=== PATIENT | female | born 1950 | race Caucasian/White ===

== ENCOUNTER → 2023-07-29 09:22 | Outpatient (REF) | payer MEDICARE, SELFPAY | LOC: RAD 09:22 | PROVIDERS: ATTENDING PHYSICIAN Internal Medicine Rheumatology; FAMILY PHYSICIAN Family Medicine | DX: M81.0 Age-related osteoporosis without current pathological fracture (principal) | CPT/HCPCS: 77080 ==

== ENCOUNTER → 2023-10-03 12:39 | Outpatient (REF) | payer MEDICARE, SELFPAY | LOC: RCS 12:39 | PROVIDERS: ATTENDING PHYSICIAN Physician Assistant; FAMILY PHYSICIAN Family Medicine | DX: I10 Essential (primary) hypertension (principal); R06.09 Other forms of dyspnea; I34.0 Nonrheumatic mitral (valve) insufficiency | CPT/HCPCS: 93306 ==

== ENCOUNTER → 2023-12-09 12:17 | Outpatient (REF) | payer MEDICARE, SELFPAY | LOC: UCDH 12:17 | PROVIDERS: ATTENDING PHYSICIAN Physician Assistant Medical; FAMILY PHYSICIAN Family Medicine | DX: R07.81 Pleurodynia (principal) | CPT/HCPCS: 71101 ==

== ENCOUNTER 2024-03-18 17:13 | Emergency (ER) | payer MEDICARE, SELFPAY ==
[2024-03-18 17:15] VITALS: BP 170/72
[2024-03-18 17:32] LABS: % Basophils 0.2 % (0-2); % Immature Granulocytes 0.1 % (0-0.5); % Lymphocytes 10.5 % (20.5-51.1); % Monocytes 3.9 % (1.7-9.3); % Neutrophils 85.3 % (42.2-75.2); Absolute Monocytes 0.4 10^3/uL (0.1-0.6); Absolute Neutrophils 7.9 10^3/uL (1.4-6.5); Hematocrit 36.9 % (37.0-47.0); Hemoglobin 12.8 g/dL (12.0-16.0); Mean Corp Hgb Conc. 34.7 g/dL (33.0-37.0); Mean Corpuscular Hgb 29.2 pg (27.0-31.0); Mean Corpuscular Volume 84.2 fL (81.0-99.0); Mean Platelet Volume 8.6 fL (7.4-10.4); Nucleated Red Blood Cells % 0 %; Platelet Count 256 10^3/uL (130-400); Red Blood Cell Count 4.38 10^6/uL (4.20-5.40); Red Cell Dist. Width 12.4 % (11.5-14.5); White Blood Cell Count 9.3 10^3/uL (4.8-10.8)
[2024-03-18 17:43] LABS: ALT (SGPT) 25 U/L (0-35); AST (SGOT) 32 U/L (14-36); Albumin 4.9 g/dl (3.5-5.0); Alkaline Phosphatase 70 U/L (38-126); Blood Urea Nitrogen 14 mg/dl (7-17); Calcium 10.1 mg/dl (8.4-10.2); Carbon Dioxide 24 mmol/L (22-30); Chloride 104 mmol/L (98-107); Glucose 123 mg/dl (70-99); Lipase 72 U/L (23-300); Potassium 4.9 mmol/L (3.5-5.1); Sodium 140 mmol/L (135-145); Total Bilirubin 0.6 mg/dl (0.2-1.3); Total Protein 7.3 g/dl (6.3-8.2); eGFR > 60.00
--- NOTE | 2024-03-18 19:25 | ED.GENMED ---
History of Present Illness
General
Chief Complaint: Abdominal Pain
Source: patient
Exam Limitations: none
Time Seen by Provider: 03/18/24 19:01
History of Present Illness
History of Present Illness:
This is a 73 year old female that comes in with c/o right sided abd pain. State that for the past 2 days she had some right sided back discomfort and know it is more on the right abd. States that the back pain did go away, but her abd pain is not
going away. States that she is nauseated and normally she has issues with constipation but today she has gone 5 times. States that she has not eaten and she has a headache. Denies any fever, chills, chest pain, SOB, vomiting, diarrhea, dizziness,
urinary burrning.
Past History
Past History
ED Past Medical History: HTN, Hypercholesterolemia and Other (TMJ syndrome, back pain)
ED Past Surgical History: Other (TMJ surgery, abd mass surgery)
Social History
Tobacco: Non-smoker
Alcohol: None
Personal:
Living: with family
Employment: Employed
Review of Systems
Review of Systems
All Other Systems: ROS reviewed and negative except as documented in HPI and ROS
Constitutional: Reports no symptoms; Denies fever or chills
EENT: Reports no symptoms
Respiratory: Reports no symptoms; Denies cough or trouble breathing
Cardiac: Reports no symptoms; Denies chest pain
ABD/GI: Reports abdominal pain and nausea; Denies vomiting or diarrhea
: Reports no symptoms; Denies dysuria, frequency or urgency
Musculoskeletal: Reports no symptoms
Skin: Reports no symptoms
Neurological: Reports headache; Denies dizzy
Psychiatric: Reports no symptoms
Phy Exam
General Physical Exam
General Presentation: well appearing and no apparent distress
General age: appears stated age
General Skin: warm and dry
General Habitus: elderly
General Mental: alert
General Hydration: appears well hydrated
ENT Exam
ENT Exam: TM's normal, pharynx normal and neck supple
Eye Exam
Eye Exam: EOMI
Cardiovascular Exam
Cardiovascular Exam: regular rate/rhythm, no edema, no murmur and normal peripheral pulses
Pulmonary Exam
Pulmonary Exam: lungs clear, no respiratory distress, no rales, chest non tender, no crackles, no rhonchi, no wheezing and no cough
Gastrointestinal Exam
Gastrointestinal Exam: normal bowel sounds, soft, no organomegaly, no pulsatile mass, non distended and tender (Right sided abd tenderness with palpation)
Musculoskeletal Exam
Musculoskeletal Exam: full ROM and no edema
Skin Exam
Skin Exam: normal color, warm/dry, no rash and no petechia
Psychiatric Exam
Psychiatric Exam: normal mood/affect
Course
Orders/Labs/Results
Orders:
Orders
03/18/24 17:23
Complete Blood Count/With Diff Urgent
Comprehensive Metabolic Panel Urgent
Lipase Urgent
03/18/24 19:30
Urine Culture Reflexed from UA [Urinalysis Reflex To Culture] Urgent
Date Specimen was Collected: 03/18/24
Time Specimen was Collected: 17:[address] Non Medication Order As Directed
Physician Order: Please put patient height to get BMI
Above order entered?: Yes
03/18/24 19:31
0.9% Sodium Chloride 1000 ml [Nss] 1,000 ml IV BOLUS
03/18/24 19:34
Ketorolac [Toradol] 15 mg IV NOW STA
03/18/24 19:58
Iohexol [Omnipaque] See Protocol PO NOW STA
03/18/24 19:59
CT Abd/pel W Iv And Oral Contr Urgent
Comment:
Reason For Exam: Right sided abd pain
Abnormal Lab Results
03/18/24 03/18/24
17:23 19:30
Hct 36.9 L %
(37.0-47.0)
Absolute Neuts (auto) 7.9 H 10^3/uL
(1.4-6.5)
Absolute Lymphs (auto) 1.0 L 10^3/uL
(1.2-3.4)
Neutrophils % 85.3 H %
(42.2-75.2)
Lymphocytes % 10.5 L %
(20.5-51.1)
Glucose 123 H mg/dl
(70-99)
Urine Ketones 3+ A
(Negative)
03/18/24 17:23
03/18/24 17:23
Hyperglycemia.
Vital Signs
Initial and Last Documented VS:
Initial Vital Signs
Temp Pulse Resp BP Pulse Ox
98.3 F 75 20 170/72 99
03/18/24 17:15 03/18/24 17:15 03/18/24 17:15 03/18/24 17:15 03/18/24 17:15
Last Documented Vital Signs
Temp Pulse Resp BP Pulse Ox
98.3 F 75 20 147/56 99
03/18/24 17:15 03/18/24 17:15 03/18/24 17:15 03/18/24 21:53 03/18/24 17:15
MDM/Problems Addressed
Differential Diagnosis Includes:
appendicitis, renal calculus,
MDM/Problems Addressed:
this is a 73 year old female that comes in with c/o right sided abd pain. States that for 2 days she had some back discomfort but this went away. Then today she has this right sided abd pain. states that she has moved her bowels 5 times today.
will check labs Urine and get CT. will also give IV fluids.
Back into see patient. Explained that her blood work was normal. CT scan shows degenerative changes at L5/S1. Explained that the nerves wrap around to the abd and can cause abd discomfort. Patient to follow up with the family doctor and may need to
see an central melt specialist. Patient to use Tylenol or Ibuprofen for pain. Patient c/o a little fluttering feeling on the left under her breast. Monitor shows NSR with occasional PAC's. Patient states that this fluttering feeling was just second
and it seems to have stopped at this time. Return with any concerns.
Chronic conditions affecting care:
NA
Acute Exacerbation and/or Progression of Chronic Illness:
NA
*Radiology
Radiology exam reviewed: radiology read reviewed (CT-Moderate diffuse hepatic steatosis. Mild chronic bilateral renal disease. Mild diverticulosis in the sigmoid colon. Severe discogenic degenerative disease at L5/S1)
*Pulse Oximetry
Patient hypoxic: no
*EKG
Interpreted by ED Provider?: NA
Rate: EKG- N/A
*Esthetician Interpretation
Rate: Esthetician- N/A
*Critical Care Note
Total Time (30-74mins, 75-104mins- exclusive of procedures): Not Applicable
ED Attending Note
-
Portions of this chart may have been created with voice recognition software.� Occasional wrong word or��sound alike� substitutions may have occurred due to the inherent limitations of voice recognition software.
Discharge Plan
Departure
Patient Disposition: Home (Routine Discharge)
Date of Disposition: 03/18/24
Time of Disposition: 23:56
Patient with high blood pressure during this ER visit?: Yes
Condition: Good
Covid-19: Not Applicable
Discharge Problem:
Right sided abdominal pain, Degenerative disc disease at L5-S1 level
Instructions: Degenerative Disc Disease ED, Abdominal Pain, BLOOD PRESSURE
Prescriptions:
No Action
diazepam 2 MG tablet
1 - 2 mg PRN (Reason: ANXIETY)
diazepam 2 MG tablet
1 - 2 mg HS
gabapentin 100 MG capsule
100 mg HS
Patient Comments:
STOPPED WED. STOMACH PAINS , DIARRHEA
metoprolol tartrate 25 MG tablet
25 mg PO DAILY
diphenhydramine HCl [Benadryl Allergy Quick Dissolv] 25 MG strip
12.5 - 25 mg PRN (Reason: SLEEP)
ezetimibe-simvastatin [Vytorin 10-20] 1 EACH tablet
1 ea PO DAILY
Compounded Transdermal Gel
QID PRN (Reason: JAW PAIN)
Patient Comments:
40 GM.WITH 5 % LIDOCAINE,10 % KETOPRAFEN,5% BACLOFEN, 5% GABAPENTIN, 2% KETAMINE
hydrocodone-acetaminophen 1 TABLET tablet
1 tab PO Q4HPRN PRN (Reason: pain) Qty: 12 0RF
Referrals:
Keon Spangler DO [Family Provider] - Follow up in 2-3 days
Activity Restrictions/Additional Instructions:
As discussed, your blood work is normal and your urine is negative for infection. Your CT is negative for any acute disease but shows that you have degenerative changes in the L5/S1. The nerves from the back wrap around to the abdomen and can cause
abdomen pain. Please follow up with the family doctor and possibly an central melt specialist for further evaluation. You may use Tylenol 1000mg every 6 hours and Ibuprofen 600mg every 6 hours with food for pain. IF YOU HAVE ANY OTHER CONCERNS PLEASE
RETURN TO THE EMERGENCY ROOM.
Interventions
Interventions:
*Risk Screen - Suicide Last Done: 03/18/24 19:23
*General Assessment Last Done: 03/18/24 17:15
*Neglect/Abuse Screening Last Done: 03/18/24 19:23
*ED COVID-19 Vaccine History Last Done: 03/18/24 19:23
BU-Aachcd-Snjrqmlssy Assessment Last Done: 03/18/24 19:47
Discharge Date and Time
Print Language: [place]
[2024-03-18 19:31] VITALS: BP 164/70
[2024-03-18 19:41] LABS: Urine Albumin Trace (Neg - Trace); Urine Bilirubin Negative (Negative); Urine Character Clear (Clear); Urine Color Yellow; Urine Glucose Negative (Negative); Urine Ketone 3+ (Negative); Urine Leukocyte Negative (Negative); Urine Nitrite Negative (Negative); Urine Occult Blood Negative (Negative); Urine Specific Gravity 1.025 (<1.030); Urine Urobilinogen Negative (Neg - 1+)
[2024-03-18] MEDS: TORADOL 15 MG IV (19:42)
[2024-03-18] MEDS: NSS 1000 IV (19:42)
[2024-03-18 20:00] VITALS: BP 150/66
[2024-03-18] MEDS: OMNIPAQUE 50 ML PO (20:11)
[2024-03-18 21:00] VITALS: BP 143/72
[2024-03-18 21:53] VITALS: BP 147/56
== END 2024-03-19 00:40 | disposition home or self-care (01) ==
LOC: EMR 17:13
PROVIDERS: Emergency Medicine; Student in an Organized Health Care Education/Training Program; EMERGENCY PHYSICIAN Emergency Medicine; FAMILY PHYSICIAN Family Medicine
DX: R10.31 Right lower quadrant pain (principal); R11.0 Nausea; R51.9 Headache, unspecified; M51.37 Other intervertebral disc degeneration, lumbosacral region; K76.0 Fatty (change of) liver, not elsewhere classified; K57.30 Diverticulosis of large intestine without perforation or abscess without bleeding; I10 Essential (primary) hypertension; E78.00 Pure hypercholesterolemia, unspecified
CPT/HCPCS: 99285; 96361; 96374; 74177; 80053; 81003; 83690; 85025; Q9967

== ENCOUNTER → 2024-05-12 15:00 | Outpatient (REF) | payer MEDICARE, SELFPAY | LOC: WDC 15:00 | PROVIDERS: ATTENDING PHYSICIAN Obstetrics & Gynecology; FAMILY PHYSICIAN Family Medicine | DX: Z12.31 Encounter for screening mammogram for malignant neoplasm of breast (principal) | CPT/HCPCS: 77063; 77067 ==

== ENCOUNTER → 2024-08-20 12:39 | Outpatient (REF) | payer MEDICARE, SELFPAY | LOC: RAD 12:39 | PROVIDERS: ATTENDING PHYSICIAN Obstetrics & Gynecology; FAMILY PHYSICIAN Family Medicine | DX: R10.2 Pelvic and perineal pain (principal); R10.31 Right lower quadrant pain | CPT/HCPCS: 76830; 76856 ==

== ENCOUNTER → 2025-06-07 12:11 | Outpatient (REF) | payer MEDICARE, SELFPAY | LOC: RAD 12:11 | PROVIDERS: ATTENDING PHYSICIAN Physician Assistant Medical | DX: R05.1 Acute cough (principal) | CPT/HCPCS: 71046 ==